=== PATIENT | female | born 1960 | race African-American/Black ===

== ENCOUNTER → 2021-04-02 | Outpatient (CLI) | payer OTHER ==
[2021-04-02 13:51] LABS: URINE BILIRUBIN NEGATIVE (Negative); URINE BLOOD TRACE (Negative); URINE CLARITY CLEAR; URINE COLOR YELLOW; URINE GLUCOSE-RANDOM* NEGATIVE (Negative); URINE KETONES NEGATIVE (Negative); URINE LEUKOCYTES 1+ (Negative); URINE NITRITE NEGATIVE (Negative); URINE PROTEIN (DIPSTICK) NEGATIVE (Negative); URINE UROBILINOGEN 0.2 E.U./dl (0.2-1.0)
[2021-04-02 13:54] LABS: ABSOLUTE NEUTROPHILS 5.6 thou/uL (1.4-8.2); BASOPHILS 0.8 % (0.0-2.0); EOSINOPHILS 1.3 % (0.0-3.0); HEMOGLOBIN 13.2 gm/dL (12.0-15.0); LYMPHOCYTES 18.8 % (24.0-44.0); MCH 28.8 pg (26.0-34.0); MCV 84.7 fL (80.0-100.0); MONOCYTES 5.5 % (1.0-8.0); PLATELET COUNT 319 thou/uL (150-400); POLYS 73.6 % (36.0-66.0); RDW 13.2 % (10.5-14.5); WBC 7.6 thou/uL (4.0-11.0)
[2021-04-02 14:01] LABS: SQUAMOUS >10 Many /LPF (0-3)
[2021-04-02 14:02] LABS: BACTERIA 1-9 Few /HPF (None Seen); CASTS None Seen /LPF (None Seen); CRYSTALS None Seen /LPF (None Seen); URINE RBC 1-2 Rare /HPF (NONE SEEN); URINE WBC 6-15 Few /HPF (NONE SEEN)
[2021-04-02 14:06] LABS: CHOLESTEROL 222 mg/dL (<200); HDL CHOLESTEROL 59 mg/dL (>40); LDL CHOLESTEROL 140 mg/dL (<100); SERUM ASSESSMENT Clear; TC:HDL 3.8 Ratio (Not establshd); TRIGLYCERIDE 117 mg/dL (<150); VLDL 23 mg/dL (<40)
== END ==
LOC: RAD 12:51
PROVIDERS: ATTEND Nurse Practitioner
DX: Z00.00 Encounter for general adult medical examination without abnormal findings (principal); M17.12 Unilateral primary osteoarthritis, left knee; M25.762 Osteophyte, left knee